=== PATIENT | female | born 1970 | race Caucasian/White ===

== ENCOUNTER → 2016-08-06 | Outpatient (CLI) | payer MEDICARE, MEDICAID ==
[~2016-08-06] MED LIST: ABIL30TA4; ADDE30CA PO; ALPR2TAB3 PO; ASMA1AER2 INH; ATEN50TA2 PO; BENA25CA2 PO; BUSP30TA; CLIN1LOT TOP; COMBAER6 INH; DETR4CAP; DEXI60CA PO; DEXT15CA5 PO; DOCU10CA PO; E-Z-PAQUE 96% w/w SUSP 176GM BTL As Ordered ONE; EFFE150C PO; EFFE75CA75; ESTR625TA; FLON0.054; FLUO25OI TOP; HALOPERIDOL; HYDR12.55 PO; LEVO88TA3 PO; PRAZ2CAP PO; REME30TA PO; SENN8.6T10 PO; SERO150T PO; SERO400T3 PO; SERO50TA3 PO; SIMV40TA2 PO; TRET0.027 TOP; VARIBAR NECTAR 40% w/v 240ML SUSP BTL As Ordered ONE; VARIBAR PUDDING 40% w/v 230ML TUBE As Ordered ONE; VENL75CA47 PO; VITA50003 PO; ZANT300T PO; ZYRT10CA PO
--- NOTE | 2016-08-06 14:55 | REP ---
COOKIE SWALLOW: The procedure was performed under the direct supervision of Dr. Martinez. The procedure was performed with Genny Laboy from speech pathology present. 5 mL aliquots of nectar, pudding, thin, and solid consistency barium was administrated. There is no evidence of penetration or aspiration. A detailed report of this examination will be provided by speech pathology. 48 seconds of fluoroscopy time was utilized for this procedure. Reviewed by THUY Grossman 08/06/2016 03:44 PEdited and Signed by Leonid Martinez MD 08/06/2016 03:48 P
== END | disposition home or self-care (01) ==
LOC: M ST 08:14
PROVIDERS: ATTEND Physician Assistant Medical
DX: R13.10 Dysphagia, unspecified (principal)
CPT/HCPCS: 74230; 92611; G8996; G8997; G8998

== ENCOUNTER → 2016-10-18 | Outpatient (CLI) | payer MEDICARE ==
[~2016-10-18] VITALS: Ht 162.6 cm; Wt 113.4 kg
[~2016-10-18] MED LIST changes: +COGE1INJ PO; -E-Z-PAQUE 96% w/w SUSP 176GM BTL As Ordered ONE; -HALOPERIDOL; +HALOPERIDOL PO; +LIDOCAINE 2% INJ 100 MG/5 ML SYRINGE As Ordered ONE; +LINZ145C PO; +LISI2.5T3 PO; +MIRA3350 PO; +NS 1,000 ML IV SCH; +PROPOFOL 200 MG/20 ML VIAL As Ordered ONE; -VARIBAR NECTAR 40% w/v 240ML SUSP BTL As Ordered ONE; -VARIBAR PUDDING 40% w/v 230ML TUBE As Ordered ONE; +oxygen
--- NOTE | 2016-10-18 13:55 | ROOR ---
Patient Name: Sammie Bonner Procedure Date: 10/18/2016 1:23 PM Date of : 1970 Age: 46 Room: [facility] Gender: Female Note Status: Finalized Procedure: Upper GI endoscopy Indications: Oral phase dysphagia, Gastroparesis Providers: Jeyson CROW MD Referring MD: LV GILLETTE MD Requesting Provider: Medicines: Monitored Anesthesia Care Complications: No immediate complications. Procedure: Pre-Anesthesia Assessment: - The heart rate, respiratory rate, oxygen saturations, blood pressure, adequacy of pulmonary ventilation, and response to care were monitored throughout the procedure. The Endoscope was introduced through the mouth, and advanced to the second part of duodenum. The upper GI endoscopy was accomplished without difficulty. The patient tolerated the procedure well. Findings: The esophagus was normal. The stomach was normal. The examined duodenum was normal. No endoscopic abnormality was evident in the esophagus to explain the patient's complaint of dysphagia. It was decided, however, to proceed with dilation of the entire esophagus. The scope was withdrawn. Dilation was performed with a Brenner dilator with no resistance at 56 Fr. The dilation site was examined following endoscope reinsertion and showed no change. Impression: - Normal esophagus. - Normal stomach. - Normal examined duodenum. - No endoscopic esophageal abnormality to explain patient's dysphagia. Esophagus dilated with 54 and 56 F Brenner dilators - No specimens collected. Recommendation: - Observe patient's clinical course. - Continue present medications. - Gastroparesis diet: - Eat smaller, more frequent meals throughout the day. - Low fat diet. - Liquid/soft foods are tolerated better than solid foods. - Low fiber/well cooked vegetables are tolerated better than high fiber/fibrous foods/raw vegetables. - Avoid medications that inhibit gastric/intestinal motility such as narcotic medications. Jeyson Crow MD Jeyson CROW MD 10/18/2016 1:54:28 PM This report has been signed electronically. Number of Addenda: 0 Note Initiated On: 10/18/2016 1:23 PM Estimated Blood Loss: Estimated blood loss: none.
[2016-10-18 14:25] VITALS: BP 132/71
== END ==
LOC: M OPP 10:19
PROVIDERS: ATTEND Internal Medicine Gastroenterology
DX: K31.84 Gastroparesis (principal); R13.11 Dysphagia, oral phase; E03.9 Hypothyroidism, unspecified; I10 Essential (primary) hypertension; F17.200 Nicotine dependence, unspecified, uncomplicated; F43.10 Post-traumatic stress disorder, unspecified; F32.9 Major depressive disorder, single episode, unspecified; R51 Headache; K21.9 Gastro-esophageal reflux disease without esophagitis; R60.9 Edema, unspecified; Z79.899 Other long term (current) drug therapy

== ENCOUNTER 2017-05-12 11:25 | Day surgery (SDC) | payer MEDICARE ==
[~2017-05-12] VITALS: Ht 162.6 cm; Wt 107.5 kg
[~2017-05-12 11:25] MED LIST changes: -ADDE30CA PO; +ADDE30CA3 PO; +ATOR80TA59 PO; -DEXI60CA PO; +DEXI60CA2 PO; -LIDOCAINE 2% INJ 100 MG/5 ML SYRINGE As Ordered ONE; -NS 1,000 ML IV SCH; -PROPOFOL 200 MG/20 ML VIAL As Ordered ONE; +SENN1TAB10 PO; -SENN8.6T10 PO; +VITA1CAP40 PO; -VITA50003 PO
[2017-05-12] MEDS ORDERED: NS 1,000 ML IV ONE (11:45)
[2017-05-12] MEDS ORDERED: PROPOFOL 200 MG/20 ML VIAL As Ordered ONE ×2 (13:45→14:42)
[2017-05-12] MEDS ORDERED: LIDOCAINE 2% INJ 100 MG/5 ML SYRINGE As Ordered ONE (13:45)
--- NOTE | 2017-05-12 14:35 | ROOR ---
Patient Name: Sammie Bonner Procedure Date: 05/12/2017 1:46 PM Date of : 1970 Age: 46 Room: [facility] Gender: Female Note Status: Finalized Procedure: Colonoscopy Indications: High risk colon cancer surveillance: Personal history of colonic polyps, Last colonoscopy: January 2014 Providers: Jeyson CROW MD Referring MD: LV GILLETTE MD Requesting Provider: Medicines: Monitored Anesthesia Care Complications: No immediate complications. Procedure: Pre-Anesthesia Assessment: - The heart rate, respiratory rate, oxygen saturations, blood pressure, adequacy of pulmonary ventilation, and response to care were monitored throughout the procedure. The Colonoscope was introduced through the anus and advanced to the terminal ileum, with identification of the appendiceal orifice and IC valve. The colonoscopy was performed without difficulty. Findings: The perianal and digital rectal examinations were normal. Three sessile polyps were found in the hepatic flexure and ascending colon. The polyps were 4 to 6 mm in size. These polyps were removed with a cold snare. Resection and retrieval were complete. A 4 mm polyp was found in the rectum. The polyp was sessile. The polyp was removed with a cold snare. Resection and retrieval were complete. The colon (entire examined portion) was redundant. The exam was otherwise without abnormality on direct and retroflexion views. Impression: - Three 4 to 6 mm polyps at the hepatic flexure and in the ascending colon, removed with a cold snare. Resected and retrieved. - One 4 mm polyp in the rectum, removed with a cold snare. Resected and retrieved. - Redundant colon. - The colon examination was otherwise normal on direct and retroflexion views. Recommendation: - Repeat colonoscopy in 3 years for surveillance. - Telephone endoscopist for pathology results in 2 weeks. Jeyson Crow MD Jeyson CROW MD 05/12/2017 2:35:14 PM This report has been signed electronically. Number of Addenda: 0 Note Initiated On: 05/12/2017 1:46 PM Estimated Blood Loss: Estimated blood loss: none.
[2017-05-12 15:06] VITALS: BP 145/98
== END 2017-05-12 15:08 | disposition home or self-care (01) ==
LOC: M OPP 11:25
PROVIDERS: ATTEND Internal Medicine Gastroenterology
DX: Z12.11 Encounter for screening for malignant neoplasm of colon (principal); Z86.010 Personal history of colon polyps; D12.3 Benign neoplasm of transverse colon; D12.2 Benign neoplasm of ascending colon; K62.1 Rectal polyp; Q43.8 Other specified congenital malformations of intestine; I10 Essential (primary) hypertension; E78.5 Hyperlipidemia, unspecified; R06.02 Shortness of breath; E03.9 Hypothyroidism, unspecified; E06.3 Autoimmune thyroiditis; K59.00 Constipation, unspecified; K21.9 Gastro-esophageal reflux disease without esophagitis; R12 Heartburn; Z99.81 Dependence on supplemental oxygen; F41.9 Anxiety disorder, unspecified; F31.9 Bipolar disorder, unspecified; F10.10 Alcohol abuse, uncomplicated; R60.0 Localized edema; R51 Headache; R42 Dizziness and giddiness; R55 Syncope and collapse; F43.10 Post-traumatic stress disorder, unspecified; J44.9 Chronic obstructive pulmonary disease, unspecified; R06.83 Snoring; E66.9 Obesity, unspecified; F17.210 Nicotine dependence, cigarettes, uncomplicated; Z79.899 Other long term (current) drug therapy

== ENCOUNTER 2019-07-08 16:48 | Inpatient (IN) | payer MEDICARE, MEDICAID ==
[~2019-07-08] VITALS: Ht 162.6 cm; Wt 107.1 kg
[~2019-07-08 16:48] MED LIST changes: -EFFE150C PO; +EFFE150C2 PO; +LISI-1046 PO; -LISI2.5T3 PO; -SERO150T PO; +SERO150T2 PO; -SERO400T3 PO; +SERO400T4 PO; -SERO50TA3 PO; +SERO50TA4 PO; -SIMV40TA2 PO; +SIMV40TA20 PO; -VITA1CAP40 PO; +VITA50005 PO; -ZANT300T PO; +ZANT300T9 PO
[2019-07-08] MEDS ORDERED: BENA25CA4 PO (17:07)
[2019-07-08] MEDS ORDERED: chlorproMAZINE 25 MG TAB (Q0161) PO ONE (19:45)
[2019-07-09] MEDS ORDERED: LEVOTHYROXINE 88MCG TABLET (0.088 MG) PO ONE ×2 (07:15→08:30)
[2019-07-09] MEDS ORDERED: VENLAFAXINE 37.5 MG TAB PO ONE (07:15)
[2019-07-09] MEDS ORDERED: VITAMIN D 50,000 UNITS CAPSULE (ERGOCALCIFEROL 1.25MG) PO ONE (07:30)
[2019-07-09] MEDS ORDERED: ALL10TAB29 PO (08:18)
[2019-07-09] MEDS ORDERED: QUET300T53 PO (08:18)
[2019-07-09] MEDS ORDERED: FAMO20TA5 PO (08:18)
[2019-07-09] MEDS ORDERED: TEMA22.5 PO (08:18)
[2019-07-09] MEDS ORDERED: ABIL1TAB11 PO (08:18)
[2019-07-09] MEDS ORDERED: VITA50005 PO (08:18)
[2019-07-09] MEDS ORDERED: PRAZ1CAP PO (08:18)
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
[2019-07-09] MEDS ORDERED: LORazepam 1 MG TAB PO STA (08:36)
[2019-07-09] MEDS ORDERED: VENLAFAXINE **XR** 75MG CAPSULE PO SCH (09:00)
[2019-07-09] MEDS ORDERED: CETIRIZINE (ZyrTEC) 10 MG TAB PO SCH (09:00)
[2019-07-09] MEDS ORDERED: PANTOPRAZOLE 20 MG TAB PO SCH (09:00)
[2019-07-09] MEDS ORDERED: PANTOPRAZOLE 40MG TAB (PROTONIX) PO SCH (09:00)
[2019-07-09] MEDS: VENLAFAXINE **XR** 75MG CAPSULE PO SCH (09:00)
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
[2019-07-09] MEDS ORDERED: MAALOX 30 ML SUSP *UDC PO PRN (15:00)
[2019-07-09] MEDS: IBUPROFEN 400 MG TAB PO PRN (18:00)
[2019-07-09 18:55] VITALS: BP 128/78
[2019-07-09] MEDS ORDERED: traZODone 50 MG TAB PO PRN (20:00)
[2019-07-09] MEDS ORDERED: FAMOTIDINE 20 MG TAB PO SCH (21:00)
[2019-07-09] MEDS: diphenhydrAMINE 25 MG CAP PO SCH (22:02)
[2019-07-09] MEDS: FAMOTIDINE 20 MG TAB PO SCH (22:03)
[2019-07-09] MEDS: PRAZOSIN 1 MG CAP PO SCH (22:03)
[2019-07-09] MEDS: QUEtiapine FUMARATE 100 MG TAB PO SCH (22:03)
[2019-07-10] MEDS: IBUPROFEN 400 MG TAB PO PRN (04:05)
[2019-07-10 06:00] VITALS: BP 102/58
[2019-07-10] MEDS ORDERED: LEVOTHYROXINE 88MCG TABLET (0.088 MG) PO SCH (06:00)
[2019-07-10] MEDS: LEVOTHYROXINE 88MCG TABLET (0.088 MG) PO SCH (06:36)
[2019-07-10] MEDS: PANTOPRAZOLE 20 MG TAB PO SCH (09:59)
[2019-07-10] MEDS: VENLAFAXINE **XR** 75MG CAPSULE PO SCH (09:59)
[2019-07-10] MEDS: CETIRIZINE (ZyrTEC) 10 MG TAB PO SCH (09:59)
[2019-07-10] MEDS: buPROPion (WELLBUTRIN SR) 100 MG SR TAB PO SCH (10:44)
[2019-07-10] MEDS: PRAZOSIN 1 MG CAP PO SCH ×2 (10:47→20:34)
--- NOTE | 2019-07-10 12:01 | MHIPNPDOC ---
[facility] Progress Note Progress Note DATE OF SERVICE: 07/10/19 VITAL SIGNS: See below. CURRENT MEDICATIONS:: - Seroquel 600 mg at bedtime - Effexor XR 300 mg daily -Wellbutrin XR 100 mg in the morning - Prazosin 3 mg at bedtime -Prazosin 1 mg daily - Benadryl 25 mg at bedtime HISTORY OF PRESENT ILLNESS: The patient is a 49-year-old white female who presented to the ED for depression and suicidal ideation. She says she was able to sleep all day yesterday. She is still very anxious today and describes her anxiety as "my chest hurts, I grind my teeth, I can't stop fidgeting and very agitated." She also says she has "social anxiety" and she has been isolating herself in her apartment lately because of it. She would like to try anxiety medication. Her depression is still very high today and she says she has "no motivation at all." For her PTSD, patient says she is still having flashbacks to her attack during the day. She is tolerating her medications well. Mental Status Examination: Patient is awake, alert and oriented x3. Her speech is clear and language skills are appropriate. Her thought process is logical and linear. She denies suicidal ideation today. She denies maniac symptoms. No signs of psychosis. Judgement and Insight are fair. Her mood is depressed and anxious. Her affect is appropriate. She is well groomed. DIAGNOSES: 1. Bipolar disorder, depressed. 2. PTSD 3. Alcohol use disorder in remission. ASSESSMENT: The patient is depressed and anxious today. She would like to try anxiety medication. She is still struggling with PTSD symptoms. She is encouraged to go to group and is willing to go. PLAN: -Continue Seroquel 600 mg -Continue Effexor 300 mg -Continue Prazosin 3mg at bedtime for nightmares, Start Prazosin 1mg in the morning for anxiety -Start Wellbutrin 100 mg in the morning -Discontinue Abilify 5mg Vital Signs Vital Signs Date Time Temp Pulse Resp B/P (MAP) Pulse Ox O2 Delivery O2 Flow Rate FiO2 07/10/19 10:47 146/82 07/10/19 06:00 98.1 99 16 Room Air 07/09/19 18:55 98 Laboratory Data 24H Labs Laboratory Tests 2 07/09/19 14:46: Lab Scanned Report LAB OTHER Current Medications Current Medications Medications (Trade) Dose Ordered Sig/Alex Route PRN Reason Start Time Stop Time Status Last Admin Dose Admin Al Hydrox/Mg Hydrox/Simethicone (Mylanta) 30 ml Q4HP PRN PO HEARTBURN/INDIGESTION 07/09/19 15:00 Aripiprazole (AbiLIFY) 5 mg DAILY PO 07/09/19 09:00 07/09/19 18:03 DC 07/09/19 08:31 Aripiprazole (AbiLIFY) 5 mg DAILY PO 07/09/19 09:00 07/09/19 18:03 DC Aripiprazole (AbiLIFY) 5 mg DAILY PO 07/10/19 09:00 07/10/19 10:15 DC 07/10/19 09:59 Bupropion HCl (Wellbutrin Sr) 100 mg QAM PO 07/10/19 09:00 07/10/19 10:44 Cetirizine HCl (ZyrTEC) 10 mg DAILY PO 07/09/19 09:00 07/09/19 18:10 DC 07/09/19 08:31 Cetirizine HCl (ZyrTEC) 10 mg DAILY PO 07/10/19 09:00 07/10/19 09:59 Diphenhydramine HCl (Benadryl) 25 mg QHS PO 07/09/19 21:00 07/09/19 22:02 Famotidine (Pepcid) 20 mg QHS PO 07/09/19 21:00 07/09/19 18:10 DC Famotidine (Pepcid) 20 mg QHS PO 07/09/19 21:00 07/09/19 22:03 Home Med (Med Rec Complete!) ASDIRECTED XX 07/09/19 08:30 07/09/19 08:23 DC Ibuprofen (Advil) 400 mg Q6HP PRN PO PAIN 07/09/19 15:00 07/10/19 04:05 Levothyroxine Sodium (Synthroid) 88 mcg DAILY@06 PO 07/10/19 06:00 07/09/19 18:10 DC Levothyroxine Sodium (Synthroid) 88 mcg DAILY@0600 PO 07/10/19 06:00 07/10/19 06:36 Lorazepam (Ativan) 1 mg STAT STAT PO 07/09/19 08:36 07/09/19 08:38 DC 07/09/19 08:46 Magnesium Hydroxide (Milk Of Magnesia) 30 ml DAILYPRN PRN PO CONSTIPATION 07/09/19 09:00 Miscellaneous (Unresolved Clarification Entry) SEE LABEL COMMENTS DAILY XX 07/09/19 09:00 07/09/19 21:32 DC Pantoprazole Sodium (Protonix) 20 mg DAILY PO 07/09/19 09:00 07/09/19 08:24 DC Pantoprazole Sodium (Protonix) 20 mg DAILY PO 07/10/19 09:00 07/10/19 09:59 Pantoprazole Sodium (Protonix) 40 mg DAILY PO 07/09/19 09:00 07/09/19 18:10 DC 07/09/19 08:31 Prazosin HCl (Minipress) 1 mg QAM PO 07/10/19 09:00 07/10/19 10:47 Prazosin HCl (Minipress) 3 mg QHS PO 07/09/19 21:00 07/09/19 22:03 Quetiapine Fumarate (SEROquel) 600 mg QHS PO 07/09/19 21:00 07/09/19 22:03 Trazodone HCl (Desyrel) 50 mg QHSP PRN PO INSOMNIA 07/09/19 20:00 Venlafaxine HCl (Effexor Xr) 300 mg DAILY PO 07/09/19 09:00 07/09/19 15:02 DC 07/09/19 08:31 Venlafaxine HCl (Effexor Xr) 300 mg DAILY PO 07/09/19 09:00 07/10/19 09:59 Allergies Coded Allergies: No Known Allergies (Verified , 05/09/17) COLIN CHOE OMS-3 Jul 10, 2019 12:01
[2019-07-10] MEDS: hydrOXYzine 50 MG TAB PO PRN (16:33)
[2019-07-10 17:34] VITALS: BP 142/83
--- NOTE | 2019-07-10 18:09 | CR.PDOC ---
General Date of Consultation: Jul 10, 2019 Consultation REASON FOR CONSULTATION/CHIEF COMPLAINT: Physical examination HISTORY OF PRESENT ILLNESS: Patient is 49 years old female with past medical his tory of COPD, coronary artery diseases, depression who was admitted with suicidal ideation. Patient denies fever, chills, nausea, palpitations, vomiting, diarrhea or dysuria ALLERGIES: Please see below. HOME MEDICATIONS: Please see below. PAST MEDICAL HISTORY: Tana thyroiditis Coronary artery diseases Depression Alcohol use disorder in remission. PAST SURGICAL HISTORY: 1. Right kidney surgery FAMILY HISTORY: Father: COPD, [place] Mother: Hypertension SOCIAL HISTORY: Tobacco use: Current smoker ETOH: Sober, EtOH abuse in the past Illicit drug use: marihuana REVIEW OF SYSTEMS: 10 point review system negative except listed above PHYSICAL EXAMINATION: VITAL SIGNS: Please see below. GENERAL APPEARANCE: not in apparent distress HEENT: Normocephalic, atraumatic. Mucous members moist and pink CARDIOVASCULAR: Regular rate and rhythm. No murmurs, rubs or gallops. Radial pulses are intact. There is no lower extremity edema LUNGS: Diminished lung sounds, ABDOMEN: Abdomen is soft and nontender. MUSCULOSKELETAL: Range of motion is intact in all 4 extremities NEUROLOGICAL: Cranial nerves II-12 are grossly intact. Speech is not dysarthric LABORATORY DATA: Please see below. ASSESSMENT/PLAN: Patient is 49 years old female with past medical history of COPD, coronary artery diseases, depression who was admitted with suicidal ideation. Patient denies fever, chills, nausea, palpitations, vomiting, diarrhea or dysuria CAD I added metoprolol 12.5 twice a day And aspirin 81 mg COPD Not in acute exacerbation Tana thyroiditis Continue levothyroxine Vital Signs/I&O Vital Signs Date Time Temp Pulse Resp B/P (MAP) Pulse Ox O2 Delivery O2 Flow Rate FiO2 07/10/19 17:34 97.1 95 16 142/83 (102) 07/10/19 06:00 Room Air 07/09/19 18:55 98 Allergies Coded Allergies: No Known Allergies (Verified , 05/09/17) Home Medications Scheduled Aripiprazole (Abilify) 5 Mg Tablet, 5 MG PO DAILY, (Reported) Atorvastatin Calcium (Atorvastatin Calcium) 80 Mg Tab, 80 MG PO QHS, (Reported) Cetirizine HCl (Cetirizine HCl) 10 Mg Tablet, 10 MG PO DAILY, (Reported) Dexlansoprazole (Dexilant) 60 Mg Cap, 60 MG PO DAILY, (Reported) Diphenhydramine HCl (Benadryl) 25 Mg Capsule, 25 MG PO QHS, (Reported) Ergocalciferol (Vitamin D2) (Vitamin D2) 50,000 Units Cap, 50,000 UNITS PO QWEEK, (Reported) MONDAYS Famotidine (Famotidine) 20 Mg Tablet, 20 MG PO QHS, (Reported) Levothyroxine Sodium (Levothyroxine Sodium) 88 Mcg Tab, 88 MCG PO DAILY, (Reported) Prazosin Hcl (Prazosin HCl) 2 Mg Cap, 2 MG PO QHS, (Reported) 3MG TOTAL QHS Prazosin Hcl (Prazosin HCl) 1 Mg Capsule, 1 MG PO QHS, (Reported) 3MG TOTAL QHS Quetiapine Fumarate (Quetiapine Fumarate ER) 300 Mg Tab.er.24h, 600 MG PO QHS, (Reported) Temazepam (Temazepam) 22.5 Mg Capsule, 22.5 MG PO QHS, (Reported) Venlafaxine HCl (Effexor Xr) 150 Mg Cap, 300 MG PO DAILY, (Reported) Scheduled PRN Ipratropium/Albuterol Sulfate (Combivent Respimat 20-100 Mcg) 1 Aer Aer, 4 PUFF INH QID PRN for SHORTNESS OF BREATH, (Reported) MERVAT ANDREA DO Jul 10, 2019 18:09
[2019-07-10] MEDS: diphenhydrAMINE 25 MG CAP PO SCH (20:33)
[2019-07-10] MEDS: METOPROLOL TART 12.5 MG PER 1/2 TAB PO SCH (20:34)
[2019-07-10] MEDS: FAMOTIDINE 20 MG TAB PO SCH (20:34)
[2019-07-10] MEDS: QUEtiapine FUMARATE 100 MG TAB PO SCH (20:34)
[2019-07-11] MEDS: hydrOXYzine 50 MG TAB PO PRN ×5 (02:40→20:18)
[2019-07-11] MEDS: LEVOTHYROXINE 88MCG TABLET (0.088 MG) PO SCH (06:11)
[2019-07-11 06:45] VITALS: BP 113/63
[2019-07-11] MEDS: CETIRIZINE (ZyrTEC) 10 MG TAB PO SCH (08:05)
[2019-07-11] MEDS: VENLAFAXINE **XR** 75MG CAPSULE PO SCH (08:06)
[2019-07-11] MEDS: PANTOPRAZOLE 20 MG TAB PO SCH (08:06)
[2019-07-11] MEDS: METOPROLOL TART 12.5 MG PER 1/2 TAB PO SCH ×2 (08:06→20:18)
[2019-07-11] MEDS: PRAZOSIN 1 MG CAP PO SCH ×2 (08:06→20:18)
[2019-07-11] MEDS: buPROPion (WELLBUTRIN SR) 100 MG SR TAB PO SCH (08:06)
[2019-07-11] MEDS: ASPIRIN 81 MG CHEW TABLET PO SCH (08:06)
[2019-07-11 15:31] VITALS: BP 113/64
--- NOTE | 2019-07-11 19:28 | MHIPN ---
DATE: 07/11/2019 VITAL SIGNS: Temperature 98.6, pulse 91, respirations 14, blood pressure 113/63. CURRENT MEDICATIONS: - Atarax 50 mg every 4 hours as needed - Wellbutrin SR 100 mg in the morning - prazosin 1 mg in the morning - prazosin 3 mg at night - Benadryl 25 mg at night - Seroquel 600 mg at night - Effexor XR 300 mg in the morning HISTORY OF PRESENT ILLNESS: The patient states that her mood is less depressed. Her depression is now in the moderate range and is no longer severe. She states that the suicidal ideation has resolved. She denies current manic symptoms. The patient found the addition of prazosin in the morning helpful with her anxiety, she likes Atarax for her anxiety symptoms as well. She feels calmer now. The patient wants the trazodone discontinued, trazodone has never been helpful for sleep for her in the past. She is tolerating the Wellbutrin in the morning. She has had no visitors but gets frequent phone calls from her extended family. The patient is still reporting posttraumatic stress disorder (PTSD) symptoms, which are chronic in nature. MENTAL STATUS EXAMINATION: The patient is alert, oriented and cooperative. The patient is quite verbal. Affect is brighter today. Mood is only moderately depressed. Suicidal ideation is resolved. No manic symptoms noted. No signs of psychosis. Grooming and hygiene appear improved. Insight and judgment seem improved. No signs of organicity. DIAGNOSES: 1. Bipolar disorder, depressed. 2. Posttraumatic stress disorder (PTSD). 3. Alcohol use disorder, in remission. PLAN: Continue present management. Discontinue trazodone. Involve in hospital milieu.
[2019-07-11] MEDS: diphenhydrAMINE 25 MG CAP PO SCH (20:18)
[2019-07-11] MEDS: FAMOTIDINE 20 MG TAB PO SCH (20:18)
[2019-07-11] MEDS: QUEtiapine FUMARATE 200 MG TAB PO SCH (20:18)
[2019-07-12] MEDS: LEVOTHYROXINE 88MCG TABLET (0.088 MG) PO SCH (05:59)
[2019-07-12 06:22] VITALS: BP 106/64
[2019-07-12] MEDS: ASPIRIN 81 MG CHEW TABLET PO SCH (08:08)
[2019-07-12] MEDS: PRAZOSIN 1 MG CAP PO SCH ×2 (08:08→20:08)
[2019-07-12] MEDS: hydrOXYzine 50 MG TAB PO PRN ×2 (08:08→22:20)
[2019-07-12] MEDS: buPROPion (WELLBUTRIN SR) 100 MG SR TAB PO SCH (08:08)
[2019-07-12] MEDS: VENLAFAXINE **XR** 75MG CAPSULE PO SCH (08:08)
[2019-07-12] MEDS: CETIRIZINE (ZyrTEC) 10 MG TAB PO SCH (08:09)
[2019-07-12] MEDS: METOPROLOL TART 12.5 MG PER 1/2 TAB PO SCH ×2 (08:09→20:09)
[2019-07-12] MEDS: PANTOPRAZOLE 20 MG TAB PO SCH (08:09)
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
[2019-07-12] MEDS: OLANZapine ORAL DISINTEGRATING TAB 5MG PO PRN ×3 (11:30→20:09)
[2019-07-12 18:00] VITALS: BP 139/81
[2019-07-12] MEDS: diphenhydrAMINE 25 MG CAP PO SCH (20:09)
[2019-07-12] MEDS: QUEtiapine FUMARATE 200 MG TAB PO SCH (20:09)
[2019-07-12] MEDS: FAMOTIDINE 20 MG TAB PO SCH (20:09)
[2019-07-13] MEDS: LEVOTHYROXINE 88MCG TABLET (0.088 MG) PO SCH (06:10)
[2019-07-13 06:37] VITALS: BP 131/82
[2019-07-13] MEDS: VENLAFAXINE **XR** 75MG CAPSULE PO SCH (08:09)
[2019-07-13] MEDS: buPROPion (WELLBUTRIN SR) 100 MG SR TAB PO SCH ×2 (08:10→20:14)
[2019-07-13] MEDS: PRAZOSIN 1 MG CAP PO SCH ×2 (08:10→20:14)
[2019-07-13] MEDS: PANTOPRAZOLE 20 MG TAB PO SCH (08:10)
[2019-07-13] MEDS: CETIRIZINE (ZyrTEC) 10 MG TAB PO SCH (08:10)
[2019-07-13] MEDS: ASPIRIN 81 MG CHEW TABLET PO SCH (08:10)
[2019-07-13] MEDS: OLANZapine ORAL DISINTEGRATING TAB 5MG PO PRN ×3 (08:11→20:13)
[2019-07-13] MEDS: METOPROLOL TART 12.5 MG PER 1/2 TAB PO SCH ×2 (08:11→20:16)
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
[2019-07-13] MEDS: MOM 30ML SUSPENSION UDC PO PRN (11:25)
[2019-07-13 18:00] VITALS: BP 136/88
[2019-07-13] MEDS: FAMOTIDINE 20 MG TAB PO SCH (20:13)
[2019-07-13] MEDS: diphenhydrAMINE 25 MG CAP PO SCH (20:14)
[2019-07-13] MEDS: QUEtiapine FUMARATE 200 MG TAB PO SCH (20:14)
[2019-07-14] MEDS: LEVOTHYROXINE 88MCG TABLET (0.088 MG) PO SCH (06:20)
[2019-07-14 06:23] VITALS: BP 122/67
[2019-07-14] MEDS: OLANZapine ORAL DISINTEGRATING TAB 5MG PO PRN ×3 (08:43→17:46)
[2019-07-14] MEDS: PANTOPRAZOLE 20 MG TAB PO SCH (08:43)
[2019-07-14] MEDS: METOPROLOL TART 12.5 MG PER 1/2 TAB PO SCH ×2 (08:43→20:52)
[2019-07-14] MEDS: buPROPion (WELLBUTRIN SR) 100 MG SR TAB PO SCH ×2 (08:43→20:52)
[2019-07-14] MEDS: ASPIRIN 81 MG CHEW TABLET PO SCH (08:44)
[2019-07-14] MEDS: PRAZOSIN 1 MG CAP PO SCH ×2 (08:44→20:53)
[2019-07-14] MEDS: CETIRIZINE (ZyrTEC) 10 MG TAB PO SCH (08:44)
[2019-07-14] MEDS: VENLAFAXINE **XR** 75MG CAPSULE PO SCH (08:44)
[2019-07-14] MEDS: MOM 30ML SUSPENSION UDC PO PRN (10:55)
[2019-07-14 15:59] VITALS: BP 113/57
[2019-07-14] MEDS: diphenhydrAMINE 25 MG CAP PO SCH (20:52)
[2019-07-14] MEDS: FAMOTIDINE 20 MG TAB PO SCH (20:52)
[2019-07-14] MEDS: QUEtiapine FUMARATE 200 MG TAB PO SCH (20:53)
[2019-07-15 06:19] VITALS: BP 109/78
[2019-07-15] MEDS: LEVOTHYROXINE 88MCG TABLET (0.088 MG) PO SCH (06:22)
[2019-07-15] MEDS: ASPIRIN 81 MG CHEW TABLET PO SCH (08:26)
[2019-07-15] MEDS: VENLAFAXINE **XR** 75MG CAPSULE PO SCH (08:26)
[2019-07-15] MEDS: CETIRIZINE (ZyrTEC) 10 MG TAB PO SCH (08:27)
[2019-07-15] MEDS: buPROPion (WELLBUTRIN SR) 100 MG SR TAB PO SCH ×2 (08:27→21:02)
[2019-07-15] MEDS: PANTOPRAZOLE 20 MG TAB PO SCH (08:27)
[2019-07-15] MEDS: METOPROLOL TART 12.5 MG PER 1/2 TAB PO SCH ×2 (08:27→21:02)
[2019-07-15] MEDS: PRAZOSIN 1 MG CAP PO SCH ×2 (08:27→21:02)
[2019-07-15] MEDS: hydrOXYzine 50 MG TAB PO PRN ×2 (08:27→17:06)
[2019-07-15 15:55] VITALS: BP 125/77
[2019-07-15] MEDS: QUEtiapine FUMARATE 200 MG TAB PO SCH (21:01)
[2019-07-15] MEDS: diphenhydrAMINE 25 MG CAP PO SCH (21:01)
[2019-07-15] MEDS: OLANZapine ORAL DISINTEGRATING TAB 5MG PO PRN (21:01)
[2019-07-15] MEDS: FAMOTIDINE 20 MG TAB PO SCH (21:02)
[2019-07-16 06:20] VITALS: BP 139/61
[2019-07-16] MEDS: LEVOTHYROXINE 88MCG TABLET (0.088 MG) PO SCH (07:17)
[2019-07-16] MEDS: ASPIRIN 81 MG CHEW TABLET PO SCH (08:18)
[2019-07-16] MEDS: VENLAFAXINE **XR** 75MG CAPSULE PO SCH (08:19)
[2019-07-16] MEDS: PRAZOSIN 1 MG CAP PO SCH ×2 (08:20→20:16)
[2019-07-16] MEDS: PANTOPRAZOLE 20 MG TAB PO SCH (08:20)
[2019-07-16] MEDS: hydrOXYzine 50 MG TAB PO PRN ×2 (08:22→13:28)
[2019-07-16] MEDS: METOPROLOL TART 12.5 MG PER 1/2 TAB PO SCH ×2 (08:22→20:17)
[2019-07-16] MEDS: buPROPion (WELLBUTRIN SR) 100 MG SR TAB PO SCH ×2 (08:22→20:16)
[2019-07-16] MEDS: CETIRIZINE (ZyrTEC) 10 MG TAB PO SCH (08:22)
[2019-07-16] MEDS: MOM 30ML SUSPENSION UDC PO PRN (09:35)
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
[2019-07-16 18:00] VITALS: BP 154/73
[2019-07-16] MEDS: diphenhydrAMINE 25 MG CAP PO SCH (20:16)
[2019-07-16] MEDS: QUEtiapine FUMARATE 200 MG TAB PO SCH (20:16)
[2019-07-16] MEDS: OLANZapine ORAL DISINTEGRATING TAB 5MG PO PRN (20:17)
[2019-07-16] MEDS: FAMOTIDINE 20 MG TAB PO SCH (20:17)
[2019-07-17] MEDS: LEVOTHYROXINE 88MCG TABLET (0.088 MG) PO SCH (06:04)
[2019-07-17 06:43] VITALS: BP 108/73
[2019-07-17] MEDS: ASPIRIN 81 MG CHEW TABLET PO SCH (08:10)
[2019-07-17] MEDS: VENLAFAXINE **XR** 75MG CAPSULE PO SCH (08:12)
[2019-07-17] MEDS: PRAZOSIN 1 MG CAP PO SCH ×2 (08:13→20:08)
[2019-07-17] MEDS: METOPROLOL TART 12.5 MG PER 1/2 TAB PO SCH ×2 (08:13→20:08)
[2019-07-17] MEDS: PANTOPRAZOLE 20 MG TAB PO SCH (08:13)
[2019-07-17] MEDS: CETIRIZINE (ZyrTEC) 10 MG TAB PO SCH (08:14)
[2019-07-17] MEDS: buPROPion (WELLBUTRIN SR) 100 MG SR TAB PO SCH ×2 (08:14→20:07)
[2019-07-17] MEDS: OLANZapine ORAL DISINTEGRATING TAB 5MG PO PRN ×2 (08:17→20:07)
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
[2019-07-17 16:32] VITALS: BP 104/58
[2019-07-17] MEDS: QUEtiapine FUMARATE 200 MG TAB PO SCH (20:07)
[2019-07-17] MEDS: diphenhydrAMINE 25 MG CAP PO SCH (20:07)
[2019-07-17] MEDS: FAMOTIDINE 20 MG TAB PO SCH (20:08)
[2019-07-18] MEDS: LEVOTHYROXINE 88MCG TABLET (0.088 MG) PO SCH (06:02)
[2019-07-18 06:48] VITALS: BP 127/89
[2019-07-18] MEDS: PANTOPRAZOLE 20 MG TAB PO SCH (08:03)
[2019-07-18 08:04] VITALS: BP 126/80
[2019-07-18] MEDS: buPROPion (WELLBUTRIN SR) 100 MG SR TAB PO SCH (08:04)
[2019-07-18] MEDS: PRAZOSIN 1 MG CAP PO SCH (08:04)
[2019-07-18] MEDS: CETIRIZINE (ZyrTEC) 10 MG TAB PO SCH (08:04)
[2019-07-18] MEDS: METOPROLOL TART 12.5 MG PER 1/2 TAB PO SCH (08:04)
[2019-07-18] MEDS: ASPIRIN 81 MG CHEW TABLET PO SCH (08:05)
[2019-07-18] MEDS: VENLAFAXINE **XR** 75MG CAPSULE PO SCH (08:05)
[2019-07-18] MEDS ORDERED: BUPR10TASR PO (09:35)
[2019-07-18] MEDS ORDERED: PRAZ1CAP PO (09:35)
[2019-07-18] MEDS ORDERED: QUET300T53 PO (09:35)
[2019-07-18] MEDS ORDERED: DIPH25CA32 PO (09:35)
[2019-07-18] MEDS ORDERED: PRAZ2CAP PO (09:35)
[2019-07-18] MEDS ORDERED: EFFE150C2 PO (09:35)
[2019-07-18] MEDS ORDERED: HYDR50TA70 PO (09:35)
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
[2019-07-18] MEDS: hydrOXYzine 50 MG TAB PO PRN (12:19)
== END 2019-07-18 13:05 | disposition home or self-care (01) | DRG 885 ==
LOC: M ED 16:48 → M ED INP 07-09 14:46 → M PSY 07-09 16:50
PROVIDERS: ADMIT Psychiatry & Neurology Psychiatry; ATTEND Psychiatry & Neurology Psychiatry
DX: F31.9 Bipolar disorder, unspecified (principal); F43.10 Post-traumatic stress disorder, unspecified; F10.21 Alcohol dependence, in remission; Z91.410 Personal history of adult physical and sexual abuse; E06.3 Autoimmune thyroiditis; I25.10 Atherosclerotic heart disease of native coronary artery without angina pectoris; F17.200 Nicotine dependence, unspecified, uncomplicated; J44.9 Chronic obstructive pulmonary disease, unspecified; Z79.899 Other long term (current) drug therapy

== ENCOUNTER → 2020-09-25 | Outpatient (CLI) | payer MEDICARE, MEDICAID ==
[~2020-09-25] MED LIST changes: +ABIL1TAB11 PO; +AMLO1TAB24; +BENA25CA4 PO; +BUPR10TASR PO; +BUPR1TAB52 PO; +CETI-24 PO; +DIPH25CA32 PO; +FAMO20TA5 PO; +FENO145T7 PO; +HYDR50TA70 PO; +LEVO100T5; -LISI-1046 PO; +LISI2.5T2 PO; +METO1TAB87 PO; +MIRT-60 PO; +PRAZ1CAP PO; +PRAZ5CAP PO; +QUET300T53 PO; +QUET400T42 PO; -REME30TA PO; +TEMA22.5; +TEMA22.5 PO
== END ==
LOC: M LABSMTC 09:32
PROVIDERS: ATTEND Anesthesiology
DX: Z01.812 Encounter for preprocedural laboratory examination (principal); Z11.52 Encounter for screening for COVID-19

== ENCOUNTER → 2022-04-22 | Outpatient (CLI) | payer MEDICARE, MEDICAID ==
[~2022-04-22] MED LIST changes: -ASMA1AER2 INH; +ERGO500029 PO; -LISI2.5T2 PO; +LISI2.5T9 PO; +MOME220A4 INH
== END ==
LOC: M IRPRO 12:10
PROVIDERS: ATTEND Otolaryngology
DX: R22.1 Localized swelling, mass and lump, neck (principal)

== ENCOUNTER → 2023-06-21 | Outpatient (CLI) | payer MEDICARE, MEDICAID ==
[~2023-06-21] MED LIST changes: +DIPH-435 PO; -DIPH25CA32 PO; -EFFE150C2 PO; +EFFE150C3 PO; -QUET300T53 PO; +QUET300T93 PO
== END ==
LOC: M SLEEP HO 09:32
PROVIDERS: ATTEND Internal Medicine Critical Care Medicine
DX: G47.33 Obstructive sleep apnea (adult) (pediatric) (principal)